=== PATIENT | male | born 1940 | race Caucasian/White ===

== ENCOUNTER 2016-12-29 09:21 | Inpatient (IN) ==
--- NOTE | 2016-12-29 09:53 | EKG Report ---
Test Performed on : 12/29/2016 09:36:36 AM Test Reason : indigestion, abdominal pain Blood Pressure : / mmHG Vent. Rate : 058 BPM Atrial Rate : 174 BPM P-R Int : 192 ms QRS Dur : 126 ms QT Int : 414 ms P-R-T Axes : 006 020 -11 degrees QTc Int : 406 ms Sinus tachycardia. with 2nd degree AV block. with 3:1 AV conduction. Nonspecific intraventricular block Abnormal ECG When compared with ECG of 05-MAR-2014 17:04, Sinus rhythm. is now with 2nd degree AV block. Unconfirmed Result
[2016-12-29 10:05] LABS: MANUAL DIFF NEEDED? NO
[2016-12-29 10:09] LABS: BASO% 0.2 % (0.0-0.8); EOS# 0.02 X1000 (0.0-0.7); EOS% 0.2 % (0.0-10.0); HEMATOCRIT 48.1 % (42.0-52.0); HEMOGLOBIN 15.5 g/dL (14.0-18.0); IMM GRAN# 0.02 X1000 (0.0-0.04); IMM GRAN% 0.2 % (0.0-0.5); LYMPH# 1.13 X1000 (1.2-3.4); LYMPH% 8.5 % (20.5-51.1); MCH 29.6 PG (27-31); MCHC 32.2 g/dL (33-37); MONO# 0.96 X1000 (0.11-0.59); MONO% 7.2 % (1.7-9.3); NEUT% 83.7 % (42.2-75.2); PLT 198 X1000 (130-400); RBC 5.23 XMIL (4.7-6.1)
[2016-12-29 10:42] LABS: ALBUMIN 3.8 g/dL (3.5-5.0); CALCIUM 10.7 mg/dL (8.8-10.2); TOTAL BILIRUBIN 0.74 mg/dL (0.20-1.00); TOTAL PROTEIN 7.1 g/dL (6.3-8.3)
[2016-12-29 10:55] LABS: URINE CULTURE NEEDED? NO; URINE MICRO REVIEW NEEDED? NO; URINE SOURCE CLEAN CATCH
[2016-12-29 11:01] LABS: BILIRUBIN URINE NEGATIVE (NEGATIVE); BLOOD URINE NEGATIVE (NEGATIVE); COLOR YELLOW; GLUCOSE URINE 100 mg/dL (NEGATIVE); LEUKOCYTES URINE NEGATIVE (NEGATIVE); NITRITE URINE NEGATIVE (NEGATIVE); PH URINE 6.5; PROTEIN URINE 100 mg/dL (NEGATIVE); SP GRAVITY URINE 1.015; TURBIDITY URINE CLEAR (CLEAR); UROBILINOGEN URINE NORMAL (NORMAL)
[2016-12-29 11:02] LABS: UR EPITHELIAL CELLS <10 /HPF (<10); URINE BACTERIA NEGATIVE /HPF; URINE RBC <10 /HPF (<10); URINE WBC <10 /HPF (<10)
--- NOTE | 2016-12-29 11:59 | Diag Imaging Result Doc PS360 ---
ABDOMEN FLAT/UPRIGHT - 12/29/2016 INDICATION: constipation TECHNIQUE: Two views COMPARISON: CT abdomen pelvis 01/29/2013 FINDINGS: There is a nonobstructive bowel gas pattern. No free air or abdominal calcifications. IMPRESSION: No acute disease. Electronically signed by Salo Garza 12/29/2016 11:57 AM
--- NOTE | 2016-12-29 13:12 | Diag Imaging Result Doc PS360 ---
CT ABD/PELVIS W/ IV CONT ONLY - 12/29/2016 INDICATION: abdominal pain/ leukocytosis/ TECHNIQUE: A CT dose reduction protocol was used. COMPARISON: 12/14/2016 FINDINGS: Lung bases are clear and the heart size is normal. There is a stable cyst at the anterior surface of the liver. The gallbladder is slightly distended at this time. The gallbladder measures about 10 x 5 cm. There are numerous gallstones in the gallbladder. No significant surrounding edema or fluid. There are numerous stable large bilateral renal cysts. No bowel obstruction or inflammation. Numerous diverticula are present throughout the colon. Prostate is absent. Urinary bladder and rectum are normal. Stable small abdominal aortic aneurysm measuring 4.1 cm. There is severe lumbar spondylosis. No acute bony lesions. IMPRESSION: 1. Slight distention of the gallbladder containing numerous stones. Consider a gallbladder ultrasound to evaluate for possible acute cholecystitis. A HIDA scan could also be considered. 2. Other chronic findings that are unchanged from prior. Electronically signed by Salo Garza 12/29/2016 1:09 PM
[2016-12-29] MEDS ORDERED: ZOFRAN IV ONE (13:18)
[2016-12-29] MEDS ORDERED: MORPHINE IV ONE (13:19)
[2016-12-29] MEDS ORDERED: NS 1,000 ML IV ONE ×2 (13:20→15:00)
--- NOTE | 2016-12-29 13:22 | PROVIDER DOCUMENTATION ---
This chart was entered by Saad Villaseñor Scribe, acting as scribe for Giuseppe Presley MD. HPI-Abdominal Pain/GI Problem - General Chief Complaint: Abdominal Pain Stated Complaint: UPPER ABD PAIN Time Seen by Provider: 12/29/16 10:18 Source: patient Allergies/Adverse Reactions: Patient Allergies Allergy/AdvReac Type Severity Reaction Status Date / Time No Known Allergies Allergy Verified 12/29/16 10:08 Home Medications: Home Medication List Medication Instructions Recorded Confirmed Last Taken Type Dorzolamide HCl/Timolol Maleat 1 drp OP BID 11/08/12 12/29/16 12/29/16 07:00 History [Dorzolamide-Timolol Eye Drops] SIMVAstatin [Zocor] 20 mg PO QHS 11/08/12 12/29/16 12/29/16 07:00 History Thiamine HCl [Vitamin B-1] 250 mg PO QAM 11/08/12 12/29/16 12/29/16 07:00 History Krill/[place]-3/Dha/Epa/Lipids 1 cap PO QAM 11/14/12 12/29/16 12/29/16 07:00 History [Krill Oil 300 mg Softgel] Fenofibrate 160 mg PO QAM 09/06/13 12/29/16 12/29/16 07:00 History Aspirin 81 mg PO QAM 09/12/13 12/29/16 12/29/16 07:00 History Multivit-Minerals/FA/Lycopene [One 1 each PO QAM 10/28/14 12/29/16 12/29/16 07: 00 History Daily For Men Tablet] Gabapentin 400 mg PO BID 12/29/16 12/29/16 12/29/16 07:00 History Lisinopril 20 mg PO DAILY 12/29/16 12/29/16 12/29/16 07:00 History Polyethylene Glycol 3350 [Miralax] 17 gm PO BID 12/29/16 12/29/16 12/29/16 07: 00 History Ranitidine HCl 300 mg PO DAILY 12/29/16 12/29/16 12/29/16 07:00 History - History of Present Illness-ABD Nature of Presenting Problems: Pt had a colonoscopy 2 weeks ago and was found to have impacted stool and has been on miralzx since then. Last night he started to have abdominal pain, but he is still having bowel movements. he has has suregery for prostate cancer, a little kidney cancer cut out, 3 back surgeries, L wrist surgery, umbilical hernia repair and is being followed for a 4.3 cm AAA Abdominal Pain Onset Location: reports: generalized abdomen Quality of Pain: reports: aching, cramping Severity in ED: reports: moderate Onset/Duration: reports: abrupt, last night Timing: reports: still present, constant Activities at Onset: reports: none Modifying Factors: improves with: nothing Associated Symptoms: denies: constipation, diarrhea, dizziness, fever/chills, genitourinary problems, nausea, shortness of breath, vomiting Similar Symptoms Previously?: No Recently seen or treated by another doctor?: Yes Review of Systems - Adult - REVIEW OF SYSTEMS - ADULT Constitutional: denies: chills, fever Eyes: denies: dry eyes, decreased vision Ears, Nose, Mouth & Throat: denies: hearing loss, nose pain Cardiovascular: denies: chest pain, irregular heart rate Respiratory: denies: chronic cough, pleurisy Gastrointestinal: reports: abdominal pain, constipation, diarrhea. denies: nausea, poor appetite, vomiting Genitourinary: denies: discharge, hematuria Past History - Adult - PAST MEDICAL HISTORY-ADULT Review of Records: reports: Nursing Assessment Review, Medications Reviewed Major Childhood Illnesses: reports: denies history Cardiovascular: reports: HTN Respiratory: reports: denies history Gastrointestinal: reports: denies history Obstetrical/Gynecological: reports: denies history Genitourinary: reports: other (partial left nephrectomy) Musculoskeletal: reports: denies history Neurological: reports: denies history Endocrine/Immune: reports: denies history Other Conditions: reports: denies history - PRIOR SURGERIES/PROCEDURES Surgical/Procedure History: reports: back/neck, other (prostate cancer surgery, kidney cancer surgery, L wrist, umbilical hernia repair, back x3) - IMMUNIZATION STATUS Childhood Immunizations: See Nurse Assessment Flu Vaccine: See Nurse Assessment - FAMILY HISTORY Family History: reviewed, not pertinent Physical Exam-General - CONSTITUTIONAL General Appearance: appears well, alert, no apparent distress - EYES Eyes: PERRL/EOMI, pink conjunctivae - HEAD, EARS, NOSE, MOUTH & THROAT HENMT: normocephalic/atraumatic, moist mucous membranes, normal ENT inspection - NECK Neck: non-tender, full range of motion, supple, normal inspection - RESPIRATORY Respiratory: chest non-tender, lungs clear, normal breath sounds, no pleuratic chest pain, no respiratory distress, no accessory muscle use - CARDIOVASCULAR Cardiovascular: normal peripheral pulses, regular rate, rhythm, no edema, no gallop, no JVD, no murmur - GASTROINTESTINAL (ABDOMEN) Abdominal Exam: normal bowel sounds, non tender, soft, no organomegaly, distended - LYMPHATIC Lymphatic: no adenopathy - MUSCULOSKELETAL Back Exam: normal inspection, no CVA tenderness, no vertebral tenderness Extremity: normal range of motion, non-tender, normal gait, normal inspection Progress - PLAN OF CARE/RESULTS Progress/Plan/Lab Results: Vital Signs - 8 hr 12/29/16 09:29 Temperature 97.8 F Pulse Rate 65 Respiratory Rate 20 Blood Pressure 185/77 O2 Sat by Pulse Oximetry 100 Laboratory Results - last 24 hr 12/29/16 09:57 WBC 13.26 H RBC 5.23 Hgb 15.5 Hct 48.1 MCV 92.0 MCH 29.6 MCHC 32.2 L RDW Std Deviation 13.2 Plt Count 198 MPV 11.0 H Immature Gran % (Auto) 0.2 Neut % (Auto) 83.7 H Lymph % (Auto) 8.5 L Citrus % (Auto) 7.2 Eos % (Auto) 0.2 Baso % (Auto) 0.2 Immature Gran # (Auto) 0.02 Neut # (Auto) 11.11 H Lymph # (Auto) 1.13 L Citrus # (Auto) 0.96 H Eos # (Auto) 0.02 Baso # (Auto) 0.02 Orders Category Date Time Status Saline Loc DIRECTED Care 12/29/16 09:59 Active NPO Diet 12/29/16 09:59 Active AMYLASE [CHEM] Stat Lab 12/29/16 09:57 Received CBC WITH ELECTRONIC DIFF [HEME] Stat Lab 12/29/16 09:57 Completed COMPREHENSIVE METABOLIC PANEL [CHEM] Stat Lab 12/29/16 09:57 Received LIPASE [CHEM] Stat Lab 12/29/16 09:57 Received URINALYSIS W/POSS RFLX CULT-1 [URINALYSIS] Stat Lab 12/29/16 09:59 Uncollected EKG [EKG] Stat Ther 12/29/16 09:34 Draft Result Diagrams: 12/29/16 09:57 12/29/16 09:57 - EKG 1 Time of EKG reading by physician:: 09:36 EKG Read and Signed by:: Giuseppe Presley EKG Interpretation (*Must complete 3 of following elements*): Abnormal Rate: 58 Rhythm: Sinus tachycardia with 2nd degreee AV block QRS: NSIVCD TX Interval: normal ST Wave: normal - CONSULTS/PCP/HOSPITALIST Notification #1 *Consult/PCP/Hospitalist*: Dr Corcoran Time Discussed: 14:57 Consult Disposition: Admit (will evaluate for possible GB surgery in the hospital) Departure - Departure Date of Disposition Decision: 12/29/16 Time of Disposition Decision: 14:58 DIAGNOSIS: Cholelithiasis NOS Qualifiers: Cholelithiasis location: gallbladder Cholecystitis presence: with cholecystitis Cholecystitis acuity: acute Biliary obstruction: without biliary obstruction Qualified Code(s): K80.00 - Calculus of gallbladder with acute cholecystitis without obstruction Disposition: ADMITTED INPATIENT 09 Certified Medical Emergency: Emergent Condition: Stable Referrals and Follow-Ups: Guanaco Corcoran [Primary Care Provider] - - Critical Care Note This patient required my direct & personal management of CC.: No This chart was documented by the indicated scribe, (Saad Villaseñor, Scribe) and accurately reflects the services I performed and decisions made by me, Giuseppe Presley MD, as attested by the provider's signature.
[2016-12-29] MEDS ORDERED: MORPHINE ONE (13:54)
--- NOTE | 2016-12-29 14:18 | Diag Imaging Result Doc PS360 ---
EXAM: US GB < RUQ (LIMITED) INDICATION: evaluate for cholecystitis COMPARISON: None. FINDINGS: There are multiple shadowing stones in the gallbladder lumen. There is no evidence of gallbladder wall thickening or pericholecystic fluid. The common bile duct is normal in diameter. Sonographic Salas's sign was reported to be negative. The liver is grossly unremarkable by ultrasound. Portal venous flow is hepatopedal. The pancreas is partially obscured. The visualized portions are grossly unremarkable. Proximal and mid aorta are obscured by bowel gas. There is a distal abdominal aortic aneurysm measuring up to 4.6 cm in the greatest dimension. The right kidney is echogenic, which is a nonspecific indicator of medical renal disease. There are a few simple appearing right renal cyst measuring up to 3.2 cm. The right kidney is grossly unremarkable, otherwise. IMPRESSION: 1.Cholelithiasis. 2.Abdominal aortic aneurysm. 3.Increased renal echotexture, which is a nonspecific indicator of medical renal disease. Electronically signed by Xavier Oliveira 12/29/2016 2:16 PM
[2016-12-29] MEDS: ZOSYN 3.375 GM/NS 3.375 GM/50 ML IVPB IV SCH ×2 (15:47→21:07)
--- NOTE | 2016-12-29 16:34 | HISTORY AND PHYSICAL ---
PCP: Dr. Guanaco llamas. CHIEF COMPLAINT: Abdominal pain. HISTORY OF PRESENT ILLNESS: Mr. Villalobos is a 75-year-old male with a history of stable AAA, prostate and renal cell carcinoma in remission, hypertension who presents to the ER with acute onset abdominal pain that began yesterday. About 2 or 3 hours after eating dinner he began to have right upper quadrant pain which he describes as intermittent and dull. This was associated with some nausea and vomiting. The pain progressed throughout the night. He denies any fever or chills. He denies any chest pain or shortness of breath. He is having some diarrhea but this has been ongoing for some time after he has had a recent colonoscopy. The pain continued this morning and he came to the ER for evaluation. In the ER, a CT of the abdomen and pelvis was done and it showed slight distention the gallbladder containing numerous stones , small abdominal aortic aneurysm measuring 4.1 cm which is stable. Abdominal ultrasound revealed increased renal echotexture and cholelithiasis otherwise nothing acute. His laboratory data show some leukocytosis but otherwise largely unremarkable. He did have a mildly elevated lipase of 80. We have obtained blood cultures and started antibiotics and consulted surgery. He is now going to be admitted. PAST MEDICAL HISTORY: 1. Stable AAA. 2. Prostate cancer. 3. Renal cell carcinoma. 4. Hypertension. 5. Hyperlipidemia. 6. Neuropathy. SURGICAL HISTORY: He has had back surgery x3, prostatectomy, renal cell carcinoma removal, tonsillectomy. SOCIAL HISTORY: No history of tobacco, alcohol or drug use. He is . is at the bedside. He is retired [employer] and retired from [employer]. ALLERGIES: No known drug allergies. HOME MEDICATIONS: Aspirin 81 mg a.m., dorzolamide timolol eyedrops b.i.d., fenofibrate 160 mg p.o. a.m., Neurontin 400 mg b.i.d. Krill oil 1 a.m., lisinopril 20 mg daily, lycopene 1 daily, MiraLAX 17 g b.i.d., ranitidine 300 mg daily, Zocor 20 mg at bedtime, vitamin B1 250 mg p.o. a.m. REVIEW OF SYSTEMS: Fourteen-point review of systems obtained and found to be negative with the exception of the HPI . PHYSICAL EXAMINATION: VITAL SIGNS: Blood pressure 168/70, heart rate 63, respiratory rate 20, O2 saturation 98% on room air, temperature is 97.8 degrees. GENERAL: Overweight male lying in hospital bed. No acute distress. NEUROLOGIC: Awake, alert, and oriented. He follows commands without focal deficits. HEENT: Head is atraumatic, normocephalic. Pupils equal, round, reactive to light. Oral mucosa is dry. Trachea is midline. No JVD or carotid bruits. CHEST: Clear to auscultation bilaterally. CV: Regular rate and rhythm. S1-S2 is noted. GI: Soft, nondistended. Right upper quadrant tenderness to palpation. Bowel sounds hypoactive. EXTREMITIES: Without edema, clubbing or cyanosis. Pulses palpable bilaterally. DIAGNOSTIC DATA: Abdomen CT shows cholelithiasis recommending HIDA scan to evaluate for acute cholecystitis. Abdomen ultrasound shows cholelithiasis and stable AAA. Abdomen x-ray shows no acute disease. EKG normal sinus rhythm with nonspecific intraventricular conduction delay, questionable Q-waves in the inferior leads. LAB DATA: WBC 13.26, hemoglobin 15.5, hematocrit 48.1, platelet count 198,000. Sodium 137, potassium 4.0, chloride 98, CO2 29, anion gap 10, BUN 22, creatinine 1.2, glucose 146, calcium 10.7. LFTs within normal limits. Lipase 80. UA is negative. ASSESSMENT AND PLAN: 1. Acute cholecystitis: We have obtained blood cultures and lactic acid. Will start Zosyn. Keep the patient NPO and consult Dr. Llamas with surgery. 2. History of abdominal aortic aneurysm: This is stable per CT. He is actually followed by Dr. Llamas on outpatient basis and he has been consulted. 3. Hypertension: Will continue his home medicines and add p.r.n. IVs as needed. 4. Hyperlipidemia: Will hold his medications for now and restart on discharge. 5. Leukocytosis: We have obtained blood cultures and lactic acid and will see if those show anything. We have started Zosyn as well. 6. History of prostate and renal cell carcinoma: In remission. This is chronic and stable. 7. Further recommendations to follow. We will add SCDs and TEDs for DVT prophylaxis. Dictated by MARINA Shukla for Dwayne Marinelli MD cc: MD Dwayne Perry MD I have seen and examined the patient and I agrees with the above evaluation and plan. Acute cholecystitis Dr [facility]lamas [facility]
[2016-12-29] MEDS ORDERED: LABETALOL IV PRN (17:20)
[2016-12-29] MEDS: APRESOLINE IV SCH (18:35)
--- NOTE | 2016-12-29 18:55 | CONSULTATION ---
DATE OF CONSULTATION: 12/29/2016 CHIEF COMPLAINT: Abdominal pain. HISTORY: This is a 75-year-old gentleman who began hurting in his right upper quadrant across his epigastrium last night after eating [employer]. The pain stayed fairly severe through the night so he sought medical attention today. He has had persistent nausea and vomiting as well. CT and ultrasound both show multiple gallstones and no real thickening to the gallbladder wall. His lipase was slightly elevated upon admission. PAST MEDICAL HISTORY: Pertinent for an abdominal aortic aneurysm, history of prostate cancer, renal cell cancer, hypertension, hyperlipidemia, uropathy. PAST SURGICAL HISTORY: Back surgery, prostatectomy, kidney removal, tonsillectomy. SOCIAL HISTORY: He is . He is retired from the [employer], retired from [employer]. Denies tobacco, alcohol or drug usage. HOME MEDICATIONS: As listed. ALLERGIES: He has no known drug allergies. REVIEW OF SYSTEMS: As noted above. PHYSICAL EXAMINATION: General: He is mildly drowsy but responds appropriately. Vital Signs: He is afebrile. Heart rate 67, respiratory rate 20, blood pressure 178/72. No cervical adenopathy. Lungs: Bilateral breath sounds. Heart: Regular rate and rhythm. Abdomen: A bit distended, tender especially in the right upper quadrant. Bowel sounds are present. Extremities: No peripheral edema. Neurologic: He is like I said slightly drowsy. LABORATORY: White count 13,300, hemoglobin 15. Total bilirubin is normal at 0.74, AST normal at 20, ALT 18, alkaline phosphatase 49, lipase elevated at 80, amylase is 84. ASSESSMENT: Probable gallstone pancreatitis. Multiple stones were noted. He has significant pain. I think it would be best to proceed with a cholecystectomy on the . I discussed the procedure with him. He understands and wants to proceed. His is in attendance. cc: Chaka Corcoran MD
[2016-12-29] MEDS: MORPHINE IV PRN (19:03)
[2016-12-30] MEDS: APRESOLINE IV SCH ×4 (00:56→19:15)
[2016-12-30] MEDS: MORPHINE IV PRN (01:08)
[2016-12-30] MEDS: ZOSYN 3.375 GM/NS 3.375 GM/50 ML IVPB IV SCH ×4 (03:37→21:17)
[2016-12-30 05:49] LABS: HEMATOCRIT 45.3 % (42.0-52.0); HEMOGLOBIN 14.4 g/dL (14.0-18.0); MCH 30.2 PG (27-31); MCHC 31.8 g/dL (33-37); RBC 4.77 XMIL (4.7-6.1)
[2016-12-30 06:16] LABS: AGAP 9; BUN 17 mg/dL (8-22); CALCIUM 10.2 mg/dL (8.8-10.2); CHLORIDE 102 mmol/L (98-107); COSMO 283; HDL 58 mg/dL (35-55); LDL 40 mg/dL; LIPASE 40 U/L (13-60); SODIUM 140 mmol/L (136-145); TCO2 29 mmol/L (25-35); TRIGLYCERIDES 57 mg/dL (39-160); VLDL 11 mg/dL
[2016-12-30] MEDS ORDERED: SODIUM CHLORIDE 0.9% ONE (08:22)
[2016-12-30] MEDS ORDERED: SENSORCAINE 0.25%/EPI 1:200,000 ONE (08:22)
[2016-12-30] MEDS ORDERED: LR 1,000 ML ONE (08:22)
[2016-12-30] MEDS ORDERED: DIPRIVAN 1% ONE (09:04)
[2016-12-30] MEDS ORDERED: XYLOCAINE-MPF 2% ONE (09:04)
[2016-12-30] MEDS ORDERED: FENTANYL ONE (09:07)
[2016-12-30] MEDS ORDERED: EPHEDRINE ONE (09:43)
[2016-12-30] MEDS ORDERED: LABETALOL ONE (09:43)
[2016-12-30] MEDS ORDERED: ROBINUL ONE (09:43)
[2016-12-30] MEDS ORDERED: NEOSTIGMINE ONE (10:11)
[2016-12-30] MEDS ORDERED: DECADRON ONE (10:26)
[2016-12-30] MEDS ORDERED: ZOFRAN ONE (10:26)
[2016-12-30] MEDS ORDERED: MORPHINE IV PRN (10:33)
--- NOTE | 2016-12-30 11:52 | Diag Imaging Result Doc PS360 ---
EXAM: OPERATIVE CHOLANGIOGRAM HISTORY: GALLBLADDER DISEASE TECHNIQUE: Two views COMMENT: There is contrast opacification of the common hepatic and common bile ducts with contrast entering the duodenum. No evidence of obstruction or filling defect is present. There is a fair amount of extravasated contrast from the cystic duct. IMPRESSION: No evidence retained stones or obstruction. Electronically signed by Michi Rocha 12/30/2016 11:49 AM
--- NOTE | 2016-12-30 13:56 | OPERATIVE NOTE ---
PROCEDURE DATE: 12/30/2016 PROCEDURE PERFORMED: Laparoscopic cholecystectomy with operative cholangiogram. SURGEON: Chaka Corcoran MD. TECHNICAL SUPPORT AGENT: Dr. Waqar Naik, who assisted in retraction of the gallbladder and exposure and closure of the wounds. PREOPERATIVE DIAGNOSIS: Acute calculous cholecystitis, abdominal wall skin mole. POSTOPERATIVE DIAGNOSIS: Acute calculous cholecystitis, abdominal wall skin mole. FINDINGS: The cholangiogram revealed a normal size common duct, free flow in the duodenum. No intraluminal filling defects were seen. The gallbladder was gangrenous in appearance. There was an epigastric abdominal wall mole that was different in color and variegated in its border. DESCRIPTION OF PROCEDURE: Satisfactory general endotracheal anesthesia was achieved. The abdomen was prepped and draped in a sterile fashion. We anesthetized the skin at each trocar site beginning at the base of the umbilicus. We made a curvilinear incision in the area of the old scar. We carried our incision down to the fascia. We scored the fascia, introduced the 11 trocar Optiview technique into the abdominal cavity. We insufflated through this trocar. Under direct visualization using 5 trocar in the midclavicular line, 5 trocar near the anterior axillary line, and an 11 mm trocar in the midepigastrium, we placed the patient in reverse Trendelenburg and turned him to the left. The gallbladder wall was discolored, thick walled and was distended, so we used an aspirating needle to decompress the gallbladder. We then grasped the fundus of the gallbladder, reflected it cephalad, and began dissection of the triangle of Calot. We obtained a critical view of safety, clipped the cystic duct near the junction of the gallbladder. We incised the cystic duct. In so doing, we did incise the side ball of an artery which we were able to cauterize. This achieved satisfactory hemostasis. We then introduced a Steph catheter, shot a cholangiogram, and the findings above were noted. We removed the cholangiogram catheter, clipped the cystic duct to the opposite side of the cystic ductotomy x3 and transected the cystic duct. We also placed a clip on the cystic artery. We divided it. We then used the cautery spatula to dissect the gallbladder away from the liver. The hole in the fundus that we had used to aspirate with did open up some. We lost some stones, but we captured them with stone cups. After the gallbladder was completely from the liver, we changed the videolaparoscope to the mid epigastric trocar, introduced an EndoCatch, placed the gallbladder within the bag, delivered out of the abdominal cavity. We enlarged the fascial incision at the umbilicus in order to deliver the gallbladder out. We looked back. We irrigated, aspirated, removed any other further stones that we could identify. Hemostasis was satisfactory. We then decompressed the abdominal cavity and removed our trocars. We closed the fascia at the umbilicus with 2-0 Polysorb [id number] fascial stitches. We placed a 2-0 Polysorb fascial stitch in the epigastrium. We then closed the skin at each incision with 4-0 Polysorb subcuticular stitches. We obtained a 3.5 mm punch and punched the epigastric abdominal wall mole to get a biopsy. We placed one 4-0 Polysorb simple stitch to close that wound. Sterile OpSite's were applied. He tolerated it well and was sent to the recovery room in satisfactory condition. cc: Chaka Corcoran MD
[2016-12-30] MEDS: NORCO-10 PO PRN (21:17)
[2016-12-31] MEDS: APRESOLINE IV SCH ×4 (02:01→17:39)
[2016-12-31] MEDS: ZOSYN 3.375 GM/NS 3.375 GM/50 ML IVPB IV SCH ×3 (03:07→17:40)
[2016-12-31 06:28] LABS: HEMATOCRIT 41.4 % (42.0-52.0); HEMOGLOBIN 12.8 g/dL (14.0-18.0); MCH 29.8 PG (27-31); MCHC 30.9 g/dL (33-37); MCV 96.5 FL (81-99); MPV 11.2 FL (7.4-10.4); RBC 4.29 XMIL (4.7-6.1)
[2016-12-31 07:13] LABS: POTASSIUM 4.2 mmol/L (3.5-5.1)
--- NOTE | 2016-12-31 17:04 | PROGRESS NOTE ---
DATE: 12/31/2016 SUBJECTIVE: Today, Mr. Villalobos refers to be doing okay. However, he said his abdomen was slightly distended. I poke with Dr. Corcoran very early this morning with regards to Mr. Villalobos. He was with the impression that the patient had a possible ileus, and he would prefer to observe him another day before we discharge him maybe tomorrow. This afternoon when I saw Mr. Villalobos, he said he has had a bowel movement later on today, and that his abdominal discomfort has significantly improved since. OBJECTIVE: Vital Signs: Blood pressure is 144/68, pulse of 50, respirations 18 , temperature 98.4 degrees. General: Mr. Bonilla is a 76-year-old male. He is in bed, not in distress. Mucosa is pink and moist. Anicteric. Acyanotic. Neck: Supple. Chest: Good air entry bilateral. Abdomen: Soft, distended. It is slightly hollow. Bowel sounds are slightly reduced. Central Nervous System: Patient is awake and alert and oriented x4. There is no focal neurological deficit. LABORATORY DATA: WBC is 11.94, hemoglobin is 12.8, platelet count is 182,000. Chemistries reviewed. Creatinine is 1.4. Rest of chemistry is unremarkable. ASSESSMENT: 1. Acute cholecystitis, status post laparoscopic cholecystectomy. 2. Post operative ileus. 3. History of abdominal aortic aneurysm. 4. Hypertension. 5. Dyslipidemia. 6. Pacle-qj-wgrfitr kidney failure. I think Mr. Villalobos is relatively stable. He has a mild postoperative ileus. Patient has been advised to walk around and sit up more to help move the bowel. He will be started on a clear liquid diet. Hopefully by tomorrow he is feeling a lot better, so we can get him home. Plan was discussed with Dr Corcoran early today. cc: Dwayne Marinelli MD [facility]ENTERPhani
[2016-12-31] MEDS: NORCO-10 PO PRN (21:49)
[2017-01-01] MEDS: ZOSYN 3.375 GM/NS 3.375 GM/50 ML IVPB IV SCH ×3 (00:05→11:15)
[2017-01-01] MEDS: APRESOLINE IV SCH ×3 (05:24→11:15)
[2017-01-01 05:54] LABS: HEMATOCRIT 42.7 % (42.0-52.0); HEMOGLOBIN 13.4 g/dL (14.0-18.0); MCH 29.6 PG (27-31); MCHC 31.4 g/dL (33-37); MCV 94.5 FL (81-99); MPV 11.3 FL (7.4-10.4); RBC 4.52 XMIL (4.7-6.1)
[2017-01-01 06:21] LABS: CALCIUM 10.4 mg/dL (8.8-10.2); POTASSIUM 3.8 mmol/L (3.5-5.1)
--- NOTE | 2017-01-01 07:33 | PROGRESS NOTE ---
DATE: 01/01/2017 SUBJECTIVE: The patient is doing okay. No major issues. OBJECTIVE: Vital Signs: The patient is currently afebrile. His vital signs are stable. General: No acute distress. Cardiovascular: Regular rate and rhythm. Lungs: Grossly clear. Abdomen: Soft, appropriately tender. ASSESSMENT AND PLAN: A 76-year-old male, status post laparoscopic cholecystectomy. Status post laparoscopic cholecystectomy: At this time, from a surgical point of view, the patient is likely safe to be discharged to home. We will defer to the hospitalist about exact timing of discharge. He does have a pain prescription in the chart. He needs to follow up with Dr. Corcoran in 1 to 2 weeks. cc: Melo Mejia MD
--- NOTE | 2017-01-01 11:42 | PROGRESS NOTE ---
DATE: 01/01/2017 SUBJECTIVE: Today Mr. Villalobos referred to be doing fine. No more abdominal pain. No nausea. No vomiting. Had 1 bowel movement. According to him, he had a bowel movement today. OBJECTIVE: Vital signs: Blood pressure is 175/69, pulse of 58, respirations 20, temperature 98.5 degrees. General: Mr. Villalobos is a 76-year-old male. He is in bed, does not seems to be in any distress. HEENT: Mucosa is pink and moist. Anicteric. Acyanotic. Neck: Supple. Chest: Good air entry bilateral. No crepitations. No rhonchi. Cardiovascular: Regular rate and rhythm. Abdomen: Soft, distended. Bowel sounds are reduced and very tympanic. There is no there is no hepatosplenomegaly. [employer]GE[employer]: Patient is awake, alert and oriented. There is no focal neurological deficit. LABORATORY DATA: CBC is down to 6.21, hemoglobin is 13.4, platelet count is 212,000. Chemistries reviewed, completely normal. Creatinine is 1.3 which is where patient normally is. ASSESSMENT: 1. Acute cholecystitis status post laparoscopic cholecystectomy. Today is day 2 postoperative. Patient is tolerating clear liquids, has had bowel movement. We will going to get him on gastrointestinal soft diet and see if he is able to tolerate that. Then we will send him home. 2. Postoperative ileus. Patient continues to be distended. He said he has had a bowel movement. We will do a KUB to make sure there is nothing underlying and then discharge him. 3. History of abdominal aortic aneurysm. Patient follows up with his surgeon. 4. Hypertension, stable. 5. Dyslipidemia. 6. Acute on chronic kidney failure, stable. PLAN: So in general I think Mr. Villalobos is doing fairly well. He is day 2 postop. He still has some abdominal distention, which I think is post surgical ileus. We will do a KUB to make sure there is nothing mechanical and we will also get him a gastrointestinal soft diet. If he is able to tolerate his food and there is nothing grossly abnormal on the KUB, we will discharge him today. cc: Dwayne Marinelli MD
[2017-01-01 11:58] VITALS: BP 153/82
--- NOTE | 2017-01-01 12:07 | Diag Imaging Result Doc PS360 ---
EXAM: KUB ABDOMEN HISTORY: abd distension TECHNIQUE: COMPARISON: 05/30/2017 FINDINGS: The bowel loops are not distended on this supine abdomen film. No organomegaly. Mild scoliosis with degenerative spine changes. IMPRESSION: No acute abnormality Electronically signed by Judson Gaspar 01/01/2017 12:05 PM
--- NOTE | 2017-01-02 14:43 | DISCHARGE SUMMARY ---
ADMISSION DATE: 12/29/2016 DISCHARGE DATE: 01/01/2017 DISPOSITION: Home. INVASIVE PROCEDURES DONE DURING THIS ADMISSION: Laparoscopic cholecystectomy with operative cholangiogram was done by Dr. Adolfo Llamas on 12/30/2016. IMAGING STUDIES OF SIGNIFICANCE: A CT scan of the abdomen and pelvic was done which shows slight distention of the gallbladder containing numerous stones. ADMISSION DIAGNOSES: 1. Acute cholecystitis. 2. Abdominal aortic aneurysm. 3. Hypertension. 4. Dyslipidemia. DIAGNOSIS AT THE TIME OF DISCHARGE: 1. Acute calculous cholecystitis, status post laparoscopic cholecystectomy with intraoperative cholangiogram. 2. Postoperative ileus. 3. History of abdominal aortic aneurysm. 4. Hypertension, stable. 5. Acute on chronic kidney failure, stable. 6. Dyslipidemia. DISCHARGE MEDICATIONS: 1. Thiamine 250 p.o. daily. 2. Simvastatin 200 at bedtime. 3. Fenofibrate 160 daily. 4. Aspirin 81 mg daily. 5. Ranitidine 300 mg daily. 6. Gabapentin 400 b.i.d. 7. Lisinopril 20 mg daily. PRESENTING COMPLAINT: Abdominal pain. HISTORY OF PRESENT COMPLAINT: Mr. Villalobos is a 75-year-old male who presented to the emergency department because of right upper quadrant pain. He was initially evaluated. Imaging studies revealed that he had a lot of gallstones in his gallbladder. The patient was admitted for further medical care. HOSPITAL COURSE: Surgery was consulted. Patient was evaluated by a Dr. Llamas. Eventually a decision was made to do a laparoscopic cholecystectomy. The patient tolerated the procedure very well. Postoperatively, he was pain free. However, he developed some mild abdominal distention, so he was not fed that day. Today, he has been started on clear liquid diet. I will advance it to a GI soft diet. He has been able to tolerate his feedings. He has had a regular bowel movement. We did an x-ray which does not show any abnormal gas pattern. From the surgery notes, they think the patient can be discharged from Surgery standpoint, so we are going to discharge the patient home. She is going to follow up with Dr. Llamas in about 2 weeks. At the time of discharge, his vitals are completely stable. Blood pressure is 153/82, pulse of 59, respirations 18, temperature 97.8 degrees. His lab works have also been reviewed. WBC is down to 6.21 and chemistry is completely unremarkable except for creatinine which is 1.3. The patient usually is anywhere between 1.2-2.1. The patient will be discharged in stable condition. He is not going to be on any antibiotics. He is going to follow up with his primary care physician, Dr. Guanaco llamas and he is also to follow up with his surgeon, Dr. Chaka Llamas. TIME SPENT FOR DISCHARGE: 35 minutes. cc: Dwayne Marinelli MD MTDD
== END 2017-01-01 16:26 | disposition home or self-care (01) ==
LOC: ED 09:21 → 4N 16:39
PROVIDERS: ATTEND Internal Medicine

== ENCOUNTER 2018-10-25 15:18 | Inpatient (IN) ==
[2018-10-25] MEDS ORDERED: NS 1,000 ML IV ONE (17:29)
--- NOTE | 2018-10-25 17:44 | PROVIDER DOCUMENTATION ---
HPI-Abdominal Pain/GI Problem - General Chief Complaint: Abdominal Pain Stated Complaint: DIARRHEA BP LOW/DR GARCIA REF Time Seen by Provider: 10/25/18 17:14 Source: patient Allergies/Adverse Reactions: Patient Allergies Allergy/AdvReac Type Severity Reaction Status Date / Time No Known Allergies Allergy Verified 10/17/17 13:26 Home Medications: Home Medication List Medication Instructions Recorded Confirmed Last Taken Type Thiamine HCl [Vitamin B-1] 250 mg PO QAM 11/08/12 10/19/17 10/18/17 08:00 History Krill/[place]-3/Dha/Epa/Lipids 1 cap PO QAM 11/14/12 10/19/17 10/18/17 08:00 History [Krill Oil 300 mg Softgel] Aspirin 81 mg PO QAM 09/12/13 10/17/17 10/14/17 History Multivit-Minerals/FA/Lycopene [One 1 each PO QAM 10/28/14 10/19/17 10/18/17 08:00 History Daily For Men Tablet] Gabapentin 400 mg PO BID 12/29/16 10/19/17 10/18/17 21:00 History Lisinopril 20 mg PO DAILY 12/29/16 10/19/17 10/18/17 08:00 History Polyethylene Glycol 3350 [Miralax] 17 gm PO BID 12/29/16 10/19/17 10/18/17 21:00 History Ranitidine HCl 300 mg PO DAILY 12/29/16 10/19/17 10/18/17 08:00 History Dorzolamide/Timolol Ophth Soln 1 drop LEFT EYE BID 10/17/17 10/19/17 10/18/17 21:00 History [Cosopt Ophth Soln] Hydrocodone/Acetaminophen [[place] 1 each PO Q4H PRN PRN #12 tablet 10/19/17 Unknown Rx 10-325 Tablet] - History of Present Illness-ABD Nature of Presenting Problems: Patient is a 77 yowm who complains of nausea x 1 week and diarrhea and generalized weakness that began today. States his pcp (Dr. Garcia) sent him here for hypotension. Pt reports some intermittent generalized abdominal pain yesterday but denies pain today. Recent antibiotic use for tooth infection. He denies fever or any other symptoms and is non-toxic in appearance. Review of Systems - Adult - REVIEW OF SYSTEMS - ADULT Constitutional: reports: no symptoms reported. denies: chills, fever Eyes: reports: no symptoms reported Ears, Nose, Mouth & Throat: reports: no symptoms reported Cardiovascular: reports: no symptoms reported Respiratory: reports: no symptoms reported Gastrointestinal: reports: see HPI, abdominal pain, diarrhea, nausea. denies: rectal bleeding, vomiting Genitourinary: reports: no symptoms reported. denies: flank pain, hematuria Musculoskeletal: reports: other (generalized weakness) Integumentary: reports: no symptoms reported Neurological: reports: no symptoms reported Psychiatric: reports: no symptoms reported Endocrine: reports: no symptoms reported Hematologic/Lymphatic: reports: no symptoms reported Allergic/Immunologic: reports: no symptoms reported All Other Systems: Reviewed and Negative Past History - Adult - PAST MEDICAL HISTORY-ADULT Review of Records: reports: Nursing Assessment Review, Medications Reviewed, Social history reviewed & non-contributory. Major Childhood Illnesses: reports: denies history Cardiovascular: reports: HTN Respiratory: reports: denies history Gastrointestinal: reports: denies history Obstetrical/Gynecological: reports: denies history Genitourinary: reports: other (partial left nephrectomy) Musculoskeletal: reports: denies history Neurological: reports: denies history Endocrine/Immune: reports: Diabetes Other Conditions: reports: denies history - PRIOR SURGERIES/PROCEDURES Surgical/Procedure History: reports: back/neck, other (prostate cancer surgery, kidney cancer surgery, L wrist, umbilical hernia repair, back x3) - IMMUNIZATION STATUS Childhood Immunizations: See Nurse Assessment Flu Vaccine: See Nurse Assessment - FAMILY HISTORY Family History: reviewed, not pertinent - SOCIAL HISTORY Smoking: non-smoker Physical Exam-General - PHYSICAL EXAM-ADULT Initial Vital Signs Reviewed: Yes - CONSTITUTIONAL General Appearance: alert, no apparent distress. negative: lethargic, slow to respond - EYES Eyes: PERRL/EOMI, pink conjunctivae. negative: sclera injected, scleral icterus, sunken eyes - HEAD, EARS, NOSE, MOUTH & THROAT HENMT: normocephalic/atraumatic, moist mucous membranes - NECK Neck: full range of motion, supple, normal inspection - RESPIRATORY Respiratory: chest non-tender, lungs clear, normal breath sounds, no pleuratic chest pain, no respiratory distress, no accessory muscle use - CARDIOVASCULAR Cardiovascular: normal peripheral pulses, regular rate, rhythm, no gallop, no murmur - GASTROINTESTINAL (ABDOMEN) Abdominal Exam: normal bowel sounds, non tender, soft, no organomegaly, no pulsatile mass. negative: distended, guarding, rigid, rebound, tenderness, hernia, mass - MUSCULOSKELETAL Back Exam: normal inspection Extremity: normal range of motion, non-tender, normal inspection, normal capil butch refill - SKIN Integumentary: normal color, warm/dry. negative: cyanosis, diaphoresis, jaundice, mottled, pallor - NEUROLOGIC Neurologic: grossly normal, no motor/sensory deficits - PSYCHIATRIC Psych/Mental Status: normal mood/affect, normal thought content, normal thought process, oriented x 3 Progress - PLAN OF CARE/RESULTS Progress/Plan/Lab Results: Vital Signs - 8 hr 10/25/18 15:33 Temperature 97.2 F L Pulse Rate 69 Respiratory Rate 20 Blood Pressure 92/54 O2 Sat by Pulse Oximetry 96 Orders Category Date Time Status Nursing- Obtain EKG ONCE Care 10/25/18 17:[address] ABDOMEN/PELVIS W/O CONTRAST [CT] Stat Exams 10/25/18 17:29 Ordered BLOOD CULTURE [BLDCUL] Stat Lab 10/25/18 17:27 Uncollected C DIFF TOXIN [STOOL] Stat Lab 10/25/18 17:27 Uncollected CBC WITH DIFF [HEME] Stat Lab 10/25/18 17:27 Uncollected COMPREHENSIVE METABOLIC PANEL [CHEM] Stat Lab 10/25/18 17:27 Uncollected LACTATE, PLASMA [CHEM] Stat Lab 10/25/18 17:27 Uncollected OVA AND PARASITE W/TRICHROME [STOOL] Stat Lab 10/25/18 17:27 Uncollected STOOL CULTURE [RM] Stat Lab 10/25/18 17:27 Uncollected TROPONIN T Stat Lab 10/25/18 17:27 Uncollected UA NIMS W/REFLEX CULT [URINALYSIS] Stat Lab 10/25/18 17:27 Uncollected WBC STOOL [STOOL] Stat Lab 10/25/18 17:27 Uncollected YERSINIA CULTURE, STOOL [RM] Routine Lab 10/25/18 17:27 Ordered 0.9% Sodium Chloride Inj [Ns] 1,000 ml Med 10/25/18 17:29 Active IV 999 mls/hr EKG [EKG] Stat Ther 10/25/18 17:27 Ordered 1927- Admitting HPS paged. Pt in agreement with admission plan. Result Diagrams: 05/08/19 18:10 10/25/18 18:10 - CT/MRI 1 CT Study: Abdomen, Pelvis (IMPRESSION: 4.6 x 4.3 cm abdominal aortic aneurysm, with mild interval enlargement compared to 12/29/2016. No evidence of aneurysm leakage or rupture. Mild distention of proximal small bowel, no discrete etiology for which is apparent. This may relate to mild enteritis or to early small bowel obstruction. No obvious appendicitis. Colonic diverticulosis, most extensive at the sigmoid and distal descending colon. No discrete diverticulitis. No abscess. No free air. This exam was performed using automated exposure control, adjustment of mA or kV according to patient size, and/or use of iterative reconstruction technique. Electronically signed by Vicente Fowler 10/25/2018 6:48 PM) Departure - Departure Date of Disposition Decision: 10/25/18 Time of Disposition Decision: 20:19 DIAGNOSIS: Acute kidney injury Diarrhea Qualifiers: Diarrhea type: unspecified type Qualified Code(s): R19.7 - Diarrhea, unspecified Disposition: ADMITTED INPATIENT 09 Certified Medical Emergency: Emergent Condition: Stable Referrals and Follow-Ups: Guanaco Garcia [Primary Care Provider] - - Critical Care Note This patient required my direct & personal management of CC.: No Attestation - Physician/ ROBERTO Attestation Patient care was provided by Advanced Practice Provider:: Yes Advanced Practice Provider:: Elena Fernandes Advanced Practice Provider documentation review:: The Mid-level provider documentation, treatment plan and medical decision making was reviewed by the physician who agrees with all treatment and medical decision making by the [facility]. The physician spent face to face time with patient:: No Advanced Practice Provider documentation review:: Supervising physician onsite and consulted in the evaluation and care of this patient. The physician did not have a face to face encounter with the patient.
[2018-10-25 18:22] LABS: BASO# 0.02 X1000 (0.0-0.2); BASO% 0.2 % (0.0-0.8); EOS% 0.9 % (0.0-10.0); HEMATOCRIT 46.2 % (42.0-52.0); HEMOGLOBIN 14.7 g/dL (14.0-18.0); IMM GRAN# 0.04 X1000 (0.0-0.04); IMM GRAN% 0.4 % (0.0-0.5); LYMPH% 14.7 % (20.5-51.1); MCH 29.1 PG (27-31); MCHC 31.8 g/dL (33-37); MCV 91.5 FL (81-99); MONO# 1.14 X1000 (0.11-0.59); MONO% 10.5 % (1.7-9.3); MPV 10.5 FL (7.4-10.4); NEUT# 7.95 X1000 (1.4-6.5); NEUT% 73.3 % (42.2-75.2); PLT 229 X1000 (130-400); RBC 5.05 XMIL (4.7-6.1); RDW 14.1 % (11.5-14.5); WBC 10.85 X1000 (4.8-10.8)
--- NOTE | 2018-10-25 18:51 | Diag Imaging Result Doc PS360 ---
EXAM: CT ABDOMEN/PELVIS W/O CONTRAST - 10/25/2018 HISTORY: abdominal pain TECHNIQUE: CT abdomen/pelvis without contrast. No contrast administered per request the referring provider. COMPARISON: CT abdomen/pelvis with intravenous contrast of 12/29/2016 FINDINGS: There is some limitation of detail due to the lack of administered contrast. The visualized lung bases appear clear. There are no acute abnormalities of the liver, spleen, adrenal glands, or pancreas identified. The gallbladder surgically absent. There is no renal stone or hydronephrosis identified. There are hypodense and mildly hyperdense right renal lesions which may represent a combination of simple and complicated cysts. There is aneurysmal dilatation of the infrarenal abdominal aorta measuring up to 4.6 x 4.3 cm. This measured 4.3 x 4.2 cm on the prior exam. There is no evidence of retroperitoneal hematoma. There are lumbar spine degenerative and postsurgical changes noted. There is mild distention of proximal small bowel. The distal small bowel is nondistended. There is no discrete etiology for the mild proximal small bowel distention identified. The appendix appears upper normal in size and shows no obvious inflammation. There is colonic diverticulosis which is most extensive at the sigmoid and distal descending colon. There is no discrete diverticulitis identified. There is no free air or abscess identified. IMPRESSION: 4.6 x 4.3 cm abdominal aortic aneurysm, with mild interval enlargement compared to 12/29/2016. No evidence of aneurysm leakage or rupture. Mild distention of proximal small bowel, no discrete etiology for which is apparent. This may relate to mild enteritis or to early small bowel obstruction. No obvious appendicitis. Colonic diverticulosis, most extensive at the sigmoid and distal descending colon. No discrete diverticulitis. No abscess. No free air. This exam was performed using automated exposure control, adjustment of mA or kV according to patient size, and/or use of iterative reconstruction technique. Electronically signed by Vicente Fowler 10/25/2018 6:48 PM
[2018-10-25 18:55] LABS: ALB/GLOB RATIO 1.6; CREATININE 2.8 mg/dL (0.7-1.2); POTASSIUM 4.1 mmol/L (3.5-5.1); TOTAL BILIRUBIN 0.42 mg/dL (0.20-1.00); TOTAL PROTEIN 6.5 g/dL (6.3-8.3)
--- NOTE | 2018-10-25 22:10 | HISTORY AND PHYSICAL ---
REASON FOR ADMISSION: A 2-week history of progressive weakness, 1-day history of diarrhea. HISTORY OF PRESENT ILLNESS: Mr. Temo Villalobos is a 77-year-old male with past medical history of type 2 diabetes, hypertension, glaucoma, hyperlipidemia diabetic neuropathy, prostate cancer, status post total prostatectomy. Reports that over about 2 weeks ago he was started on some antibiotics for some dental work and shortly afterwards, was started on a new blood pressure medication, which was lisinopril/hydrochlorothiazide and a diabetic medication name unknown. He said since starting the latter, he has been having intermittent abdominal cramps. He says he has been feeling profoundly weak and sought care today at Dr. Guanaco Corcoran's office. On arrival, they had a nurse practitioner they noticed he blood pressure was in the 90s, systolic range and advised him to come to the ER. The patient reports having 5 nonbloody loose stools today. No melena noted. The denies any nausea or vomiting. He says the abdominal pains have gotten worse and although they are transient, they occur in the lower half of his abdomen with no specific aggravating or relieving factors. No radiation. He denies any cardiorespiratory complaints. He denies any genitourinary complaints other than chronic urinary incontinence following prostatectomy. No hematuria. No dysuria. Cannot quantify if his urine output has diminished. As he is incontinent. No arthralgia or rash. No polyuria or polydipsia. REVIEW OF SYSTEMS: A 12-system review was done. Positive findings per HPI. ALLERGIES: He says he developed a "super orange tablet" which is an antibiotic that makes him confused. He cannot remember the name. SURGICAL HISTORY: Has had a radical prostatectomy, primary umbilical repair, nephrectomy, back surgery, left scrotal orchiectomy. FAMILY HISTORY: Notable for heart disease, breast cancer. No colon disorders or diabetes in first-degree relatives. SOCIAL HISTORY: [employer] [employer] vet. No alcohol use. No drug use at this point in time. , lives with his . LABORATORY WORK: White count 10,000, hemoglobin and hematocrit 14 and 46, platelets 229,000 with normal differential. BUN 62, creatinine 2.8. The latter is up from 1.4 in July of this year. BUN is also up from of July this year. Glucose 134, calcium 11, lactate is normal. CT of the abdomen done showed a 4 x 4 abdominal aneurysm with mild interval enlargement. Mild distention of the proximal small bowel. Possibly related to mild enteritis. He has diverticulosis noted, without any inflammatory changes. PHYSICAL EXAMINATION: VITAL SIGNS: Blood pressure is 104/57 heart rate 66, respirations 21 temp is 98.2 degrees, he is 97% on room air. He is a slightly overweight, elderly man who is not in acute distress. He is alert and oriented to person, time with normal mood and affect. HEENT: Head is normocephalic, atraumatic. Eyes: NICA, EOMI. He is anicteric, not pale. ENT exam is grossly normal with mild xerostomia. No oropharyngeal exudates. No cyanosis. NECK: Supple. No JVD or carotid bruit. No thyromegaly. CHEST: Clear to auscultation. Good air entry both lung holly. CARDIOVASCULAR: 1st and 2nd sounds heard. No gallops, murmurs, rubs. Rhythm is regular. ABDOMEN: Is significantly protuberant, soft, with mild lower suprapubic tenderness. No rebound or guarding. Bowel sounds are normal. RECTAL: Deferred at this time. EXTREMITIES: The patient has decreased and symmetrical regular distal pulses volumes in all distal extremities. No edema, clubbing or cyanosis noticed. No gross focal deficits. SKIN: Intact, with no breakdown, lesion, erythema. But noticeable decreased turgor. MUSCULOSKELETAL: Exam is grossly normal. ASSESSMENT: At this time is: 1. Acute kidney injury secondary to decreased intravascular volume from GI losses and from diuretics and nephrotoxic medications. 2. Type 2 diabetes. 3. Chronic hypercalcemia. Please rule out primary hyperparathyroidism. 4. Hypertension. 5. Diabetic neuropathy. 6. AAA. PLAN: Patient will be aggressively hydrated with BMP repeated on a daily basis. Withhold any antihypertensives for an indefinite period until things subside. So far, we are unable to get his home medication list to find out what antidiabetic agent he is on. I surmise it has got to be an SGLT2 inhibitor versus metformin as the likely culprits. The patient does have hypercalcemia which may be contributing to his depleted intravascular volume from polyuria. However, this could also be secondary to hydrochlorothiazide, although the patient was started on hydrochlorothiazide just a few weeks ago. If possible, 24 hour urine collection may be done and intact PTH will be ordered. The biggest issue which the brought to my attention is that there is some confusion between the medication the primary care physician has given [facility], and hopefully will during his stay we can iron out what the patient should be taking and what he should not be taking prior to his discharge. Urinalysis is still pending at this time and should shed more light as the probable etiology of his ASHIA and orders coexisting underlying urinary tract infection. cc: Dr. Guanaco Jackson MD [facility]ENTERPhani
[2018-10-26] MEDS ORDERED: TYLENOL PO PRN (00:03)
[2018-10-26] MEDS ORDERED: ZOFRAN IV PRN (00:03)
[2018-10-26] MEDS: HEPARIN SUBQ SCH ×2 (01:51→17:46)
[2018-10-26] MEDS: NS 1,000 ML IV SCH ×4 (01:51→23:12)
[2018-10-26 04:41] LABS: URINE SOURCE CLEAN CATCH
[2018-10-26 04:44] LABS: BILIRUBIN URINE NEGATIVE (NEGATIVE); BLOOD URINE NEGATIVE (NEGATIVE); COLOR YELLOW; GLUCOSE URINE NEGATIVE (NEGATIVE); KETONE URINE NEGATIVE (NEGATIVE); LEUKOCYTES URINE NEGATIVE (NEGATIVE); NITRITE URINE NEGATIVE (NEGATIVE); PROTEIN URINE NEGATIVE (NEGATIVE); TURBIDITY URINE CLEAR (CLEAR); UROBILINOGEN URINE NORMAL (NORMAL)
[2018-10-26 04:46] LABS: UR EPITHELIAL CELLS <10 /HPF (<10); URINE BACTERIA NEGATIVE /HPF; URINE RBC <10 /HPF (<10); URINE WBC <10 /HPF (<10)
[2018-10-26] MEDS: HUMALOG SUBQ SCH ×2 (06:09→11:42)
[2018-10-26 07:43] LABS: BASO# 0.01 X1000 (0.0-0.2); BASO% 0.2 % (0.0-0.8); EOS# 0.07 X1000 (0.0-0.7); EOS% 1.4 % (0.0-10.0); HEMATOCRIT 42.8 % (42.0-52.0); HEMOGLOBIN 13.4 g/dL (14.0-18.0); IMM GRAN# 0.02 X1000 (0.0-0.04); IMM GRAN% 0.4 % (0.0-0.5); LYMPH# 1.13 X1000 (1.2-3.4); LYMPH% 22.1 % (20.5-51.1); MCH 28.7 PG (27-31); MCHC 31.3 g/dL (33-37); MCV 91.6 FL (81-99); MONO# 0.64 X1000 (0.11-0.59); MONO% 12.5 % (1.7-9.3); MPV 10.7 FL (7.4-10.4); NEUT# 3.25 X1000 (1.4-6.5); NEUT% 63.4 % (42.2-75.2); PLT 172 X1000 (130-400); RBC 4.67 XMIL (4.7-6.1); RDW 13.9 % (11.5-14.5); WBC 5.12 X1000 (4.8-10.8)
[2018-10-26 08:09] LABS: CALCIUM 10.2 mg/dL (8.8-10.2); CREATININE 2.2 mg/dL (0.7-1.2); POTASSIUM 3.5 mmol/L (3.5-5.1)
--- NOTE | 2018-10-26 08:11 | EKG Report ---
Test Performed on : 10/25/2018 6:38:59 PM Test Reason : abdominal pain Blood Pressure : / mmHG Vent. Rate : 067 BPM Atrial Rate : 067 BPM P-R Int : 208 ms QRS Dur : 124 ms QT Int : 364 ms P-R-T Axes : 000 000 005 degrees QTc Int : 384 ms Sinus rhythm. with occasional premature ventricular complexes. Nonspecific intraventricular conduction delay Borderline ECG When compared with ECG of 17-OCT-2017 13:53, No significant change was found Unconfirmed Result
--- NOTE | 2018-10-26 14:59 | PROGRESS NOTE ---
DATE: 10/26/2018 SUBJECTIVE: The patient has no major complaints, except he really wants his medications. Diarrhea has resolved. OBJECTIVE: Blood pressure is 141/74, heart rate 76, respiratory rate 17, temperature 97.8 degrees and 97% on room air.Cardiovascular: Regular rate and rhythm. Pulmonary: Bilateral breath sounds. Clear to auscultation. GI: Soft, nontender, and nondistended. Bowel sounds are positive. LABORATORY DATA: White count 5, hemoglobin and hematocrit 13 and 42, platelets 172,000. Creatinine is down to 2.2 and BUN 48. PROBLEM LIST: 1. Acute kidney injury related to dehydration and nephrotoxic medications. We will continue to follow. Continue hydration. Check urine electrolytes and renal ultrasound. 2. Type 2 diabetes. Hold his oral medications. Sliding scale and follow. 3. Hypercalcemia. His current calcium is okay. He did have an elevated level when he came in, but that has since come down. We will continue to monitor. Dr. Jackson recommended ruling out primary hyperparathyroidism, but I do not see any. His level is done, it is normal. We will continue to monitor. Calcium level currently is okay. DISPOSITION: 1. Pending clinical status, anticipate discharge soon presumably if stable. 2. Abdominal aortic aneurysm is 4.6 x 4.3, which that has enlarged and looks stable. It is above 4.5, but not above 5.5. He may need to follow with surgeon. He has had renal cell cancer before. He has seen Dr. Corcoran. I think follow-up in January. Apparently, it was 4.2 or 4.4 before so I do not think that is a big change. I do not think this is anything to do with his primary issue, but we will continue to monitor. cc: Rohan Loredo MD
--- NOTE | 2018-10-26 15:51 | NEPHROLOGY CONSULTATION ---
DATE: 10/26/2018 REASON FOR CONSULTATION: Acute kidney injury overlying chronic kidney disease. HISTORY OF PRESENT ILLNESS: Mr. Villalobos is a 77-year-old white male with a history of hypertension, diabetes, prostatism status post prostatectomy. He also has history of nephrectomy. He has a baseline creatinine of approximately 1.6. He recently started lisinopril and hydrochlorothiazide. He has been having diarrhea that is nonbloody with abdominal discomfort. Because of this, he sought attention with his primary care doctor in addition to weakness. At that time, his blood pressure was low and urine output was diminished. He sought attention at the hospital and was subsequently admitted. His initial evaluation found blood pressure 92/54, heart rate 69, respirations 20, afebrile. After resuscitation, his blood pressure improved nicely. Antihypertensive medications were discontinued. No voiding symptoms otherwise. PAST MEDICAL HISTORY: As above. HOME MEDICATIONS: Include lisinopril, thiamine, gabapentin, polyethylene glycol, hydrocodone, latanoprost drops, losartan, hydrochlorothiazide, pantoprazole, primidone, sertraline, alogliptin. ALLERGIES: None. SOCIAL HISTORY: No current alcohol or tobacco. . Lives with his . FAMILY HISTORY: Otherwise noncontributory. REVIEW OF SYSTEMS: Otherwise noncontributory. PHYSICAL EXAMINATION: Vital Signs: Blood pressure 141/74, heart rate 76, respirations 17, afebrile. General: No acute distress. Skin: Warm and dry. Eyes: Conjunctivae are pink. Neck: Neck veins are not distended. Heart: Regular. No gallops. Lungs: Equal. No crackles. Abdomen: Soft, nontender. Bowel sounds present. Extremities: No edema, clubbing or cyanosis. IMPRESSION: Acute kidney injury overlying chronic kidney disease. Likely intravascular volume depletion in the context of angiotensin receptor benjamin therapy. Repeat creatinine this morning is improved from 2.8 to 2.2. Urine sodium was 26. Urine was bland, without proteinuria or hematuria. CT scan with no renal abnormalities. cc: Jamie Diaz MD
[2018-10-26] MEDS: COSOPT OPHTH SOLN LEFT EYE SCH ×2 (17:46→21:56)
[2018-10-26] MEDS: NEURONTIN PO SCH (17:46)
[2018-10-26] MEDS: XALATAN 0.005% OPH SOLN LEFT EYE SCH (17:47)
[2018-10-26] MEDS: HUMULIN R SUBQ SCH ×2 (19:38→21:55)
[2018-10-26] MEDS: MYSOLINE PO SCH (21:56)
[2018-10-27] MEDS: HEPARIN SUBQ SCH ×2 (02:59→15:26)
[2018-10-27] MEDS: HUMULIN R SUBQ SCH ×4 (06:11→21:35)
[2018-10-27] MEDS: PROTONIX PO SCH (06:27)
[2018-10-27] MEDS: NS 1,000 ML IV SCH (06:27)
[2018-10-27 07:30] LABS: BASO# 0.02 X1000 (0.0-0.2); BASO% 0.4 % (0.0-0.8); EOS# 0.08 X1000 (0.0-0.7); EOS% 1.7 % (0.0-10.0); HEMATOCRIT 38.9 % (42.0-52.0); HEMOGLOBIN 12.3 g/dL (14.0-18.0); IMM GRAN# 0.02 X1000 (0.0-0.04); IMM GRAN% 0.4 % (0.0-0.5); LYMPH# 1.24 X1000 (1.2-3.4); LYMPH% 26.7 % (20.5-51.1); MCH 28.8 PG (27-31); MCHC 31.6 g/dL (33-37); MCV 91.1 FL (81-99); MONO# 0.54 X1000 (0.11-0.59); MONO% 11.6 % (1.7-9.3); MPV 10.7 FL (7.4-10.4); NEUT# 2.75 X1000 (1.4-6.5); NEUT% 59.2 % (42.2-75.2); PLT 202 X1000 (130-400); RBC 4.27 XMIL (4.7-6.1); RDW 13.8 % (11.5-14.5); WBC 4.65 X1000 (4.8-10.8)
[2018-10-27 07:45] LABS: CALCIUM 9.5 mg/dL (8.8-10.2); CREATININE 1.4 mg/dL (0.7-1.2); POTASSIUM 3.7 mmol/L (3.5-5.1)
[2018-10-27] MEDS: VITAMIN B-1 PO SCH (11:45)
[2018-10-27] MEDS: FISH OIL CONCENTRATE PO SCH (11:47)
[2018-10-27] MEDS: NEURONTIN PO SCH ×3 (11:47→17:53)
[2018-10-27] MEDS: COSOPT OPHTH SOLN LEFT EYE SCH ×2 (11:50→21:34)
[2018-10-27] MEDS: ZOLOFT PO SCH (11:51)
[2018-10-27] MEDS: XALATAN 0.005% OPH SOLN LEFT EYE SCH (11:52)
--- NOTE | 2018-10-27 12:42 | NEPHROLOGY PROGRESS NOTE ---
DATE: 10/27/2018 SUBJECTIVE: He is lying in bed. He is complaining that his diaper leaks, but no other new complaints. He is eating well. No shortness of breath, nausea or vomiting. OBJECTIVE: Vital Signs: Blood pressure 144/60, heart rate 62, respiration 19, afebrile. General: No acute distress. Skin: Warm and dry. Neck: Neck veins are not distended, but he does have hepatojugular reflux. Heart: Regular. No S4. Lungs: Equal. No crackles or wheezes. Abdomen: Soft, nontender. Bowel sounds present. Extremities: With no edema, clubbing or cyanosis. IMPRESSION: 1. Acute kidney injury. Creatinine today 1.4. Back to baseline. 2. Electrolytes, acid-base, and blood pressure are all within target. We will sign off today, but if we can be of further assistance, please do not hesitate to call. I would plan to restart his SELINA inhibitor at his next outpatient appointment with his primary care doctor. cc: Jamie Diaz MD
[2018-10-27] MEDS ORDERED: LACTULOSE PO PRN (13:53)
[2018-10-27] MEDS ORDERED: LACTULOSE PO ONE (13:53)
[2018-10-27] MEDS ORDERED: MIRALAX PO SCH (14:00)
[2018-10-27] MEDS ORDERED: NS 1,000 ML IV ONE (15:05)
--- NOTE | 2018-10-27 15:24 | PROGRESS NOTE ---
DATE: 10/27/2018 SUBJECTIVE: Patient has no major complaints. OBJECTIVE: Vital Signs: Blood pressure is 138/64, heart rate 66, respiratory rate 18, temperature 97.6, 97% on room air. Cardiovascular: Regular rate and rhythm. Pulmonary: Bilateral breath sounds. Clear to auscultation. Gastrointestinal: Soft, nontender, nondistended. Bowel sounds are positive. LABORATORY DATA: White count 4, hemoglobin and hematocrit 12 and 38, platelets 202,000. Creatinine is down to 1.4. BUN is down to 29. PROBLEM LIST: 1. Acute kidney injury likely related to dehydration and diuretics. He continues to improve. I am going to continue IV fluids for one more day. Well, I think Dr. Diaz has already stopped them. Resume his blood pressure medications when he follows up with his PCP, assuming his kidney function is intact. In any case, the patient is stabilized. We had a long discussion about his medications. 2. Type 2 diabetes. He reports a sugar above 200, like a random, and then he reports an A1c above 7, so those are consistent with diabetes. Now, at this facility his sugars have been stable. We do not have an A1c yet. I am trying to get it added to his blood work and we will continue to follow. DISPOSITION: I think if he is stable and we can get him up and about, he should be able to be discharged tomorrow. Clinically, he is improved. cc: Rohan Loredo MD
[2018-10-27] MEDS: MYSOLINE PO SCH (21:34)
[2018-10-28] MEDS: HEPARIN SUBQ SCH ×2 (01:36→13:21)
[2018-10-28] MEDS: HUMULIN R SUBQ SCH ×2 (06:36→10:54)
[2018-10-28] MEDS: PROTONIX PO SCH (06:38)
[2018-10-28 07:15] LABS: BASO# 0.02 X1000 (0.0-0.2); BASO% 0.5 % (0.0-0.8); EOS# 0.06 X1000 (0.0-0.7); EOS% 1.4 % (0.0-10.0); HEMATOCRIT 38.6 % (42.0-52.0); HEMOGLOBIN 12.4 g/dL (14.0-18.0); LYMPH% 28.1 % (20.5-51.1); MCH 29.3 PG (27-31); MCHC 32.1 g/dL (33-37); MCV 91.3 FL (81-99); MONO# 0.41 X1000 (0.11-0.59); MONO% 9.6 % (1.7-9.3); MPV 10.3 FL (7.4-10.4); NEUT# 2.58 X1000 (1.4-6.5); NEUT% 60.4 % (42.2-75.2); PLT 202 X1000 (130-400); RBC 4.23 XMIL (4.7-6.1); RDW 13.8 % (11.5-14.5); WBC 4.27 X1000 (4.8-10.8)
[2018-10-28 07:51] LABS: AGAP 9; BUN 18 mg/dL (8-22); CALCIUM 9.9 mg/dL (8.8-10.2); CHLORIDE 111 mmol/L (98-107); COSMO 290; CREATININE 1.1 mg/dL (0.7-1.2); ESTIMATED GFR > 60; GLUCOSE 79 mg/dL (70-104); SODIUM 145 mmol/L (136-145); TCO2 25 mmol/L (25-35)
[2018-10-28] MEDS: NEURONTIN PO SCH ×2 (09:06→13:19)
[2018-10-28] MEDS: ZOLOFT PO SCH (09:06)
[2018-10-28] MEDS: FISH OIL CONCENTRATE PO SCH (09:07)
[2018-10-28] MEDS: XALATAN 0.005% OPH SOLN LEFT EYE SCH ×2 (09:07→09:10)
[2018-10-28] MEDS: COSOPT OPHTH SOLN LEFT EYE SCH (09:07)
[2018-10-28] MEDS: VITAMIN B-1 PO SCH (09:07)
[2018-10-28 12:49] VITALS: BP 122/59
[2018-10-28] MEDS ORDERED: XALATAN 0.005% OPH SOLN LEFT EYE SCH (21:00)
--- NOTE | 2018-10-28 22:16 | DISCHARGE SUMMARY ---
ADMISSION DATE: 10/25/2018 DISCHARGE DATE: 10/28/2018 PRIMARY CARE PHYSICIAN: Dr. Guanaco Corcoran. ADMISSION DIAGNOSES: 1. Acute kidney injury secondary to decreased intravascular volume from gastrointestinal losses and from diuretics and nephrotoxic medications. 2. Type 2 diabetes. 3. Chronic hypercalcemia. 4. Hypertension. 5. Diabetic neuropathy. 6. Abdominal aortic aneurysm. DISCHARGE DIAGNOSIS: 1. Acute kidney injury likely related to dehydration and diuretics, improved. 2. Type 2 diabetes. 3. Chronic hypercalcemia resolved. 4. Hypertension. 5. Diabetic neuropathy. 6. Abdominal aortic aneurysm. SUMMARY OF FINDINGS: This is a 77-year-old male who presented to the emergency room reporting 2 weeks ago he had been started on antibiotics for some dental work. Shortly afterwards he started a new blood pressure medicine that was lisinopril/hydrochlorothiazide and a diabetic medication of an unknown name. Said that since he started the latter he had been having intermittent abdominal cramping, been profoundly weak and sought care at his primary care physician's office. His blood pressure at the office was noted to be in the 90 systolic so he was advised to come to the emergency room. He reported having 5 nonbloody loose stools on the day of arrival. No melena noted. Denied any nausea, vomiting. The abdominal pains had gotten worse although they were transient and occurred in the lower half of the abdomen. He was found to have a BUN of 52, a creatinine of 2.8 on arrival. This was thought to be secondary to his diuretic use and some nephrotoxic medications. He was given IV hydration and his kidney function has returned to normal at this time at 1.1. His diabetes, his sugars have been above 200s and he reports an A1c above 7 and those are certainly consistent with diabetes. While he has been here in the hospital his blood sugars have overall been stable being in the 140s to 170s. His hemoglobin A1c here with us was 8. His blood pressures have improved today he is at 122/59, and it is felt that he can safely be discharged home today. DISCHARGE MEDICATIONS: Will include Cosopt ophthalmic solution 1 drop to left eye b.i.d., gabapentin 400 mg p.o. t.i.d., Krill oil 300 mg soft gel 1 p.o. daily, Xalatan 0.005% ophthalmic solution to the left eye daily, pantoprazole 40 mg p.o. daily and Mysoline 50 mg p.o. at bedtime, Zoloft 100 mg p.o. daily, thiamin 250 mg p.o. q.a.m., alogliptin 12.5 mg p.o. daily, [place] 10 one q.4 hours p.r.n., Hyzaar 100/12.5 one p.o. daily, multivitamin for men 1 p.o. q.a.m. and MiraLAX 17 g p.o. b.i.d. p.r.n. FOLLOWUP: He needs to follow up with his primary care physician in the next 1 to 2 weeks and call their office for an appointment. All discharge instructions have been reviewed with the patient and he verbalized understanding. TIME SPENT: 33 minutes. Dictated by MARINA Beckwith for Rohan Loredo MD cc: MD Rohan Perry MD
--- NOTE | 2018-10-29 05:02 | DISCHARGE SUMMARY ---
ADMISSION DATE: 10/25/2018 DISCHARGE DATE: 10/28/2018 DISCHARGE DIAGNOSES: 1. Acute kidney injury related to diuretics and diarrhea. 2. Diabetes. CONSULTATIONS: Nephrology. PROCEDURES: None. HISTORY AND HOSPITAL COURSE: Briefly, this is a 77-year-old male with diabetes, hypertension, prostate cancer, who came in with diarrhea. He had been seen in Dr. Guanaco Corcoran's office, had low blood pressure, and I think he had abnormal labs, and was sent to the ER. He was found to be in renal failure with a creatinine of 2.8. White count was normal. He is on ARB and diuretic combination. He has been on alogliptin, which [facility], but he has not been very tolerant of that. He feels he is not certain he truly has diabetes, but reportedly had elevated blood sugars and an A1c above 7. He came in after hydration. His creatinine slowly trended downwards, on day of discharge it is 1.1. I advised him to hold his diuretics till he follows up with his PCP. Now, Dr. Diaz saw him and also recommended resuming his SELINA at follow-up, maybe holding his hydrochlorothiazide. I am going to hold the alogliptin as well. I recommended possibly Januvia, which I guess is similar, it is sitagliptin, which is safe in renal dysfunction, or glipizide. He wanted to discuss it with Dr. Corcoran before initiating any new medications, which is reasonable, especially if they are going to be changed. He had no further diarrhea, so we were not able to test for any infection, but that resolved within the first 24 hours. He was felt stable for discharge. The only other changes, again, I had told him to hold his losartan/hydrochlorothiazide and avoid NSAIDs, stay hydrated. cc: Rohan Loredo MD
== END 2018-10-28 15:35 | disposition home health service (06) | DRG 684 ==
LOC: ED 15:18 → SUATTDRO 23:40 → 3N 23:40
PROVIDERS: ATTEND Internal Medicine
CPT/HCPCS: 74176; 80048; 80053; 81001; 82948; 83036; 83605; 83970; 84300; 84484; 85025; 87040; 93005; 96360; 99285; A9270; J1644; J7030; XXXXX